=== PATIENT | female | born 1935 | race Caucasian/White ===

== ENCOUNTER 2018-09-20 09:33 | Emergency (ER) | payer OTHER ==
[~2018-09-20] VITALS: Ht 154.9 cm; Wt 68.0 kg
[2018-09-20] MEDS ORDERED: ALEVE220 MG PO (10:18)
[2018-09-20] MEDS ORDERED: DULCOLAX10 MG RECTAL (10:27)
[2018-09-20] MEDS ORDERED: CARBIDOPA-LEVO1 EAC2 PO (10:30)
[2018-09-20] MEDS ORDERED: IRON325 PO (10:31)
[2018-09-20] MEDS ORDERED: VITAMIN B-12500 MCG PO (10:31)
[2018-09-20] MEDS ORDERED: COLACE100 MG PO (10:31)
[2018-09-20] MEDS ORDERED: GLYCOLAX119 GM PO (10:32)
[2018-09-20] MEDS ORDERED: MELATONIN5 M1 PO (10:32)
[2018-09-20 10:34] LABS: ABSOLUTE NEUTROPHILS 3.6 thou/uL (1.4-8.2); BASOPHILS 0.4 % (0.0-2.0); EOSINOPHILS 1.1 % (0.0-3.0); HEMATOCRIT 38.4 % (37.0-47.0); HEMOGLOBIN 12.9 gm/dL (12.0-15.0); LYMPHOCYTES 19.7 % (24.0-44.0); MCH 28.2 pg (26.0-34.0); MCHC 33.4 g/dL (28.0-37.0); MCV 84.3 fL (80.0-100.0); MONOCYTES 4.2 % (1.0-8.0); PLATELET COUNT 223 thou/uL (150-400); POLYS 74.6 % (36.0-66.0); RBC 4.56 mil/uL (4.20-5.00); RDW 15.3 % (10.5-14.5); WBC 4.9 thou/uL (4.0-11.0)
[2018-09-20 10:42] LABS: CALCIUM 8.9 mg/dL (8.5-10.1); CREATININE 0.7 mg/dL (0.6-1.0)
[2018-09-20 10:48] LABS: ALBUMIN 3.8 g/dL (3.4-5.0); TOTAL BILIRUBIN 0.3 mg/dL (<0.1-1.0); TOTAL PROTEIN 7.3 g/dL (6.4-8.2)
[2018-09-20 19:30] VITALS: BP 104/55
--- NOTE | 2018-09-21 08:06 | EKG ---
[place] [address] [facility] [employer] [place] [address] ELECTROCARDIOGRAM REPORT Name: MAGNO SALCEDOGAURAV [facility] [id number] ������������������ Admission: 09/20/18 ������������������ Attend Phys: Discharge: 09/20/18 ������������������ Date of : 37 Report #: [id number] ����������������������������������������������������������������� [id number] THIS REPORT FOR: //name// [facility] ED Test Date: 2018-09-20 Test Time: 10:06:02 Pat Name: JIM SALCEDO Department: Room: Gender: F Integration Analyst: xochilt : 1935 Requested By: Aniceto Aguila Order Number: [id number] MD: Alexandre Rush Measurements Intervals [place] Rate: 84 P: 69 VT: 208 QRS: 3 QRSD: 95 T: -4 QT: 357 QTc: 422 Interpretive Statements Sinus rhythm with sinus arrhythmia Borderline T abnormalities, inferior leads No previous ECG available for comparison Electronically Signed On 09-21-2018 8:06:37 CDT by Alexandre Rush [email or web address] ��������������������������������������������� <ELECTRONICALLY SIGNED> ���������������������������������������� By: Alexandre Rush MD, [facility] ��������������������������������������������� 09/21/18 0806 1006 1006 Alexandre Rush MD, FACC /EPI
== END 2018-09-20 19:34 ==
LOC: ER 09:33
PROVIDERS: Emergency Medicine
DX: M24.411 Recurrent dislocation, right shoulder (principal); W18.39XA Other fall on same level, initial encounter; Y93.89 Activity, other specified; Y92.128 Other place in nursing home as the place of occurrence of the external cause; Y99.8 Other external cause status

== ENCOUNTER 2019-04-02 11:24 | Inpatient (IN) | payer OTHER ==
[~2019-04-02] VITALS: Ht 145 cm; Wt 72.6 kg
[2019-04-02 11:24] VITALS: BP 144/66
[~2019-04-02 11:24] MED LIST: ALEVE220 MG PO; CARBIDOPA-LEVO1 EAC2 PO; COLACE100 MG PO; DULCOLAX10 MG RECTAL; GLYCOLAX119 GM PO; IRON325 PO; MELATONIN5 M1 PO; VITAMIN B-12500 MCG PO
[2019-04-02] MEDS ORDERED: NAMENDA 10 MG T10 MG PO (11:37)
[2019-04-02] MEDS ORDERED: VANACOF DM LIQ240 ML PO (11:37)
[2019-04-02] MEDS ORDERED: OMEPRAZOLE 20 M20 M1 PO (11:38)
[2019-04-02] MEDS ORDERED: OXYBUTYNIN 5 MG5 M2 PO (11:38)
[2019-04-02] MEDS ORDERED: FISH OIL 1,0001 EAC9 PO (11:38)
[2019-04-02] MEDS ORDERED: SENNA8.8 MG/5 M PO (11:39)
[2019-04-02] MEDS ORDERED: TYLENOL WITH CO1 TA1 PO (11:39)
[2019-04-02] MEDS ORDERED: REQUIP XL2 MG PO (11:39)
[2019-04-02 12:55] VITALS: BP 189/97
[2019-04-02 14:13] LABS: ABSOLUTE NEUTROPHILS 3.7 thou/uL (1.4-8.2); BASOPHILS 0.5 % (0.0-2.0); EOSINOPHILS 0.5 % (0.0-3.0); HEMATOCRIT 36.7 % (37.0-47.0); HEMOGLOBIN 12.3 gm/dL (12.0-15.0); MCHC 33.5 g/dL (28.0-37.0); MCV 89.4 fL (80.0-100.0); MONOCYTES 3.6 % (1.0-8.0); PLATELET COUNT 251 thou/uL (150-400); POLYS 73.4 % (36.0-66.0); RDW 14.1 % (10.5-14.5)
[2019-04-02 14:36] LABS: CALCIUM 9.1 mg/dL (8.5-10.1); CREATININE 0.8 mg/dL (0.6-1.0); POTASSIUM 4.2 mmol/L (3.5-5.1)
[2019-04-02 16:22] VITALS: BP 144/66
[2019-04-02 17:33] VITALS: BP 151/59
[2019-04-03 03:45] VITALS: BP 110/47
--- NOTE | 2019-04-03 05:00 | NUR ---
PT TO UNIT AROUND 1715, I ASSUMED CARE AT 1900. ADMISSION ASSESSMENT COMPLETED, VSS, NO SKIN ISSUES. ORINETED TO NURSE, UNIT AND CALL LIGHT. PT ALERT AND ORIENTED TO PERSON BUT CONFUSED/FORGETFUL. SISTER AND SON HELPED WITH ADMISSION. NPO AT MIDNIGHT FOR SX TODAY. REPORTING SEVERE PAIN AT BEGINNING, IV PUSH MORPHINE GIVEN AND PT HAS BEEN ASLEEP ALL NIGHT. INCONTINENT OF B&B. ON 2 LITERS DUE TO SATS DROPPING FROM IV PAIN MEDS, DOES NOT WEAR OXYGEN AT HOME. WILL CONTINUE TO MONITOR.
[2019-04-03 09:57] LABS: HEMATOCRIT 34.4 % (37.0-47.0); HEMOGLOBIN 11.2 gm/dL (12.0-15.0); MCH 29.4 pg (26.0-34.0); MCHC 32.6 g/dL (28.0-37.0); MCV 90.1 fL (80.0-100.0); RBC 3.81 mil/uL (4.20-5.00); RDW 14.2 % (10.5-14.5); WBC 4.3 thou/uL (4.0-11.0)
[2019-04-03 11:45] VITALS: BP 134/65
[2019-04-03 15:00] VITALS: BP 92/53
--- NOTE | 2019-04-03 15:50 | NUR ---
PT ADMITTED RELATED TO FX L HIP. CM REVIEWED CHART AND SPOKE WITH CARE TEAM. CM MET WITH PT, SISTER, DTR, AND GDTR AT BEDSIDE THIS DAY. PT HAD SURGERY THIS MORNING. SISTER INDICATED THAT PT RESIDES AT [facility] ON THE 2ND FLOOR (NURSING FLOOR). SHE INDICATED WITH PT HAD USED A FWW WITH ASSIST FOR SHORT DISTANCES AND A WHEELCHAIR FOR LONGER DISTANCES. SISTER INDICATED THAT DR. REIS HAD SPOKEN TO THEM ABOUT PT POSSIBLY NEEDING POST ACUTE CARE STAY BEFORE RETURNING TO [facility]. CARE TEAM INDICATED THAT PT IS BEING TRANSFERED TO FOR TELE ROM 355. CM TO FOLLOW INDICATED WITH DC PLANNING.
--- NOTE | 2019-04-03 16:07 | HC ---
[facility] [place] [address] CONSULTATION Name: JIM SALCEDO Room #: 355- ADM IN M.R.#: [id number] Admission: 04/02/19 Attend Phys: Susan Hilliard MD Discharge: Date of : 36 Report #: [id number] THIS REPORT FOR: cc: Susan Hilliard MD,Brando Paiz MD, MD ~ THIS REPORT FOR: //name// CC: Susan Hillirad DATE OF SERVICE: 04/03/2019 REASON FOR CONSULTATION: Left hip fracture. HISTORY OF PRESENT ILLNESS: The patient is an 83-year-old female who evidently fell at her nursing facility on to her left side in the bathroom. She was brought to the Emergency Room, found to have a subcapital femoral neck fracture on the left. She has been admitted for definitive treatment. PAST MEDICAL HISTORY: Significant for Parkinson's, restless legs syndrome, constipation, mixed hyperlipidemia, repeated falls, stress incontinence, rotator cuff repair, bladder mesh and implants. CURRENT MEDICATIONS: Have been reviewed and are on the chart. ALLERGIES: No known drug allergies. SOCIAL HISTORY: She does not smoke, drink or use illicit drugs. She lives at [facility]. She does use a walker for ambulation. PHYSICAL EXAMINATION: GENERAL: This is a very frail-appearing female in what appears to be a moderate amount of pain. She is a very poor historian and not cooperative with examination. EXTREMITIES: Examination of left lower extremity shows to have pain with range of motion of the left hip. She does wiggle her toes. She has brisk capillary refill. X-RAY EXAMINATION: AP and lateral of the left hip show a subcapital femoral neck fracture of unknown chronicity. CT scan confirms a subcapital femoral neck fracture on the left. ASSESSMENT: Left femoral neck fracture, displaced. PLAN: We are recommending a hemiarthroplasty for definitive treatment for her to have her scheduled this morning for my partner, Dr. Peña to perform the [facility] [address] [place] [address] CONSULTATION Name: MAGNO SALCEDOGAURAV Room #: 355- ADM IN M.R.#: [id number] Admission: 04/02/19 Attend Phys: Susan Hilliard MD Discharge: Date of : 36 Report #: [id number] surgery, nursing staff will attempt to get in touch with his family in order to apprise them on her situation. Thanks for allowing us to participate in the care of the patient. <ELECTRONICALLY SIGNED> By: Brando Spear MD 04/03/19 1607 0652 0712 Brando Spear MD /nt
--- NOTE | 2019-04-03 18:56 | NUR ---
ASSUMED CARE OF THE PT AT 0700. PT WENT TO SX AND RETURNED WITH TACHYCARDIA, HR GOES FROM 88 TO 122, WITH PAIN MEDS, SEE EMAR AND IV FLUIDS. DOCTOR NOTIFIED AND ADVISED TO PUT ORDERS IN TO SEND PT TO TELE FOR MONITORING AND EKG. EKG SHOWED ABNORMAL TACHYCARDIA. SCDS, JAKE, ICE PACKS, SONU HOSE IN PLACE. LUNGS ARE NORMAL POST OP WITH IRREGULAR BREATHING. BED IN LOWEST POSITION, CALL LIGHT WITHIN REACH AND FALL PRECAUTIONS IN PLACE. WILL CONTINUE TO MONITOR THE PT.
[2019-04-03 20:13] VITALS: BP 98/53
[2019-04-03 23:48] VITALS: BP 120/61
[2019-04-04 04:23] VITALS: BP 139/56
[2019-04-04 05:52] LABS: HEMATOCRIT 24.1 % (37.0-47.0); MCH 30.6 pg (26.0-34.0); MCV 90.1 fL (80.0-100.0); RBC 2.67 mil/uL (4.20-5.00); WBC 5.2 thou/uL (4.0-11.0)
[2019-04-04 06:01] LABS: HEMOGLOBIN 8.2 gm/dL (12.0-15.0)
--- NOTE | 2019-04-04 06:52 | NUR ---
PT MAKING SLOW PROGRESS TOWARDS GOALS. X1 PAIN MEDICATIONS LAST NIGHT FOR COMPLAINT OF LEFT HIP PAIN. BANDAGE D/I. HEMOVAC WITH SANGUINOUS DRAINAGE. AT APPROXIMATELY 2300 PT WAS BRIEFLY BRADYCARDIC. UPON ENTERING THE ROOM PT WAS AWAKE/ALERT AND WAS NOTED TO HAVE VOMITED. ZOFRAN WAS GIVEN. THE BRADYCARDIA WAS BRIEF AND SPONTANEOUSLY RESOLVED. ZOFRAN RELIEVED THE NAUSEA. CONTINUE TO MONITOR.
[2019-04-04 07:19] VITALS: BP 100/45
[2019-04-04 09:16] LABS: URINE BILIRUBIN NEGATIVE (Negative); URINE BLOOD NEGATIVE (Negative); URINE COLOR YELLOW; URINE GLUCOSE-RANDOM* NEGATIVE (Negative); URINE KETONES TRACE (Negative); URINE LEUKOCYTES-REFLEX 1+ (Negative); URINE NITRITE-REFLEX POSITIVE (Negative); URINE PROTEIN (DIPSTICK) NEGATIVE (Negative); URINE SPECIFIC GRAVITY 1.025 (1.005-1.035); URINE UROBILINOGEN 0.2 E.U./dl (0.2-1.0)
[2019-04-04 09:17] LABS: URINE CLARITY HAZY
[2019-04-04 09:39] LABS: SQUAMOUS 4-10 Moderate /LPF (0-3)
[2019-04-04 09:40] LABS: AMORPHOUS URATES Moderate /LPF (None Seen); CASTS None Seen /LPF (None Seen); URINE RBC None Seen /HPF (0-2); URINE WBC-REFLEX 6-15 Few /HPF (0-5)
--- NOTE | 2019-04-04 10:48 | NUR ---
Pt had "y" for pressure wound indicated however does not have pressure ulcer. S/P hip surgery 2/3. Tolerating regular diet. Hx senile dementia but is talkative with some confusion. Son in room, voiced no nutrition concerns and stated her wt has been stable. Low nutrition risk
[2019-04-04 11:03] VITALS: BP 95/46
--- NOTE | 2019-04-04 13:54 | H ---
[facility] [place] [address] HISTORY AND PHYSICAL Name: JIM SALCEDO Room #: 355-P ADM IN M.R.#: [id number] Admission: 04/02/19 Attend Phys: Susan Hilliard MD Discharge: Date of : 36 Report #: [id number] THIS REPORT FOR: //name// CC: Susan Hilliard DATE OF SERVICE: 04/02/2019 CHIEF COMPLAINT: Fall with leg pain. HISTORY OF PRESENT ILLNESS: The patient is an 83-year-old female from [facility] the [facility] with a history of dementia who fell on 04/02/2019, complained of pain on her left side. She apparently was in her bathroom after getting up without calling for assistance when she normally needs contact guard assistance with an aid and a roller walker to get in and around her room. She was found on the floor and could not walk and brought to the Emergency Room, which revealed a left hip fracture. PAST MEDICAL HISTORY: Senile dementia, Parkinson's disease, restless leg syndrome, dyslipidemia. PAST SURGICAL HISTORY: She has had a right rotator cuff repair, bladder mesh surgery. FAMILY HISTORY: Noncontributory. SOCIAL HISTORY: She has been living on the assisted living unit at [facility] for some time. No chronic alcohol or tobacco use. ALLERGIES: None. MEDICATIONS: Naproxen, Sinemet, Colace, iron, MiraLax, melatonin, memantine, Fish oil, oxybutynin, Requip, Senokot. REVIEW OF SYSTEMS: She denies any shortness of breath or chest pain. Complains of some pain in the left hip. PHYSICAL EXAMINATION: VITAL SIGNS: Temperature 36.7, pulse 84, respirations 18, blood pressure 134/65, O2 sat 96% on 2 liters nasal cannula. GENERAL: She is asleep, drowsy after surgery, but arousable, talks to her family. HEAD AND NECK: Unremarkable. LUNGS: Clear. HEART: Regular. ABDOMEN: Soft, normoactive bowel sounds. EXTREMITIES: No edema. Surgical dressing of the left hip with postoperative [facility] [address] [place] [address] HISTORY AND PHYSICAL Name: JIM SALCEDO Room #: 355-P [facility] IN ..#: [id number] Admission: 04/02/19 Attend Phys: Susan Hilliard MD Discharge: Date of : 36 Report #: [id number] NEUROLOGIC: No resting tremor noted. She moves all extremities, but globally weak, splints on the left leg due to pain. EKG revealed sinus tachycardia 105. Postoperative x-ray reviewed. Lab data reviewed. I spoke to the family at the bedside and reviewed her home medications. ASSESSMENT: 1. Acute closed left femoral neck fracture. 2. Status post left hemiarthroplasty. 3. Parkinson disease. 4. Sinus tachycardia. 5. Mild senile dementia. PLAN: Admit to move her to telemetry to monitor for any tachyarrhythmias postoperatively, but right now just appears sinus tachycardia, which could be related to pain from surgery. I will try to minimize her sedating medications and pain regimen as well. <ELECTRONICALLY SIGNED> By: Lennox Kay MD 04/04/19 1354 1351 1634 Lennox Kay MD /nt
--- NOTE | 2019-04-04 14:53 | NUR ---
PATIENT DISCHARGED FROM OT, PATIENT UNABLE TO RECALL THR PRECAUTIONS, SHE REQUIRED DEPENDENT ASSIST FOR LE DRESSING AND BATHING PRIOR TO FALL AND WILL NEED SUPERVISION AND ASSIST FOR LE DRESSING AND BATHING FROM STAFF TO PRESERVE THE INTEGRITY OF THE NEW JOINT AFTER DISCHARGE. DISCHARGE FROM OT AT THIS TIME.
[2019-04-04 15:12] VITALS: BP 111/43
--- NOTE | 2019-04-04 16:32 | NUR ---
SW reviewed chart and spoke with nursing. Pt was transferred to from yesterday. Pt is s/p left INDIRA. SW met with pt and son at bedside. Discussed discharge planning and provided list of SNFs for review, should pt need a short term SNF stay prior to returning to [facility]. LAUREN is following to assist as needed with discharge planning.
--- NOTE | 2019-04-04 18:00 | NUR ---
PT VSS...PAIN WELL CONTROLLED WITH PRN NORCO...DENIES NAUSEA THIS SHIFT...ENCOURAGE ACTIVITY...
[2019-04-04 19:09] VITALS: BP 124/48
[2019-04-05 03:21] VITALS: BP 106/48
[2019-04-05 04:32] LABS: HEMATOCRIT 20.9 % (37.0-47.0); HEMOGLOBIN 7.1 gm/dL (12.0-15.0); MCH 30.5 pg (26.0-34.0); MCHC 33.9 g/dL (28.0-37.0); RBC 2.33 mil/uL (4.20-5.00); RDW 13.9 % (10.5-14.5); WBC 4.7 thou/uL (4.0-11.0)
[2019-04-05 07:21] VITALS: BP 95/42
--- NOTE | 2019-04-05 08:21 | O ---
[facility] [place] [address] OPERATIVE REPORT Name: JIM SALCEDO Room #: 355-P ADM IN M.R.#: [id number] Admission: 04/02/19 Attend Phys: Susan Hilliard MD Discharge: Date of : 36 Report #: [id number] THIS REPORT FOR: cc: Susan Hilliard MD,Lennox Ritchie MD, MD ~ THIS REPORT FOR: //name// CC: Susan Hilliard DATE OF SERVICE: 04/03/2019 PREOPERATIVE DIAGNOSIS: Fracture, left femoral neck. POSTOPERATIVE DIAGNOSIS: Fracture, left femoral neck. PROCEDURE: Left proximal femoral hemiarthroplasty. SURGEON: Lennox Peña MD. INDICATIONS: This frail 83-year-old female has Parkinson disease and mild dementia. She has limited ambulatory potential and used a walker for protected ambulation with significant assistance. She fell injuring the left hip. X-rays confirmed an impacted femoral neck fracture. Given her findings and history, we elected to go ahead with proximal femoral hemiarthroplasty. DESCRIPTION OF PROCEDURE: The patient was taken to the operating room where she was placed under general anesthesia. Prophylactic intravenous antibiotics were administered. She was turned to the right lateral decubitus position. The left hip, thigh and leg were meticulously prepped and draped. A slightly curving posterolateral skin incision was made centered over the greater trochanter. This was carried through subcutaneous tissues and fascia, exposing the posterior aspect of the hip joint. The short external rotators and capsule were taken down and tagged with several #1 FiberWire sutures and preserved. The hip was dislocated. The femoral head was found to be 44 mm in diameter. The calcar was trimmed down to an appropriate level. The canal was opened with reamers and hand broaches. The Moore and Nephew hip system was utilized. A size 12 Synergy cement and stem seemed to fit most appropriately. A trial reduction was performed and a 0 neck length with a 44 mm unipolar head fit nicely. This resulted in satisfactory range of motion and stability. I believe she does have a mild flexion contracture from her preoperative status and I have attempted to shorten the hip slightly to allow for better hip extension. With this, the hip still seems stable with flexion and rotation. The trial components were removed. Methylmethacrylate cement was mixed and injected into the canal using a cement restrictor. The Moore and Nephew size 12 Synergy cemented femoral component was then inserted. This was positioned about 15 degrees of [facility] [address] [place] [address] OPERATIVE REPORT Name: JIM SALCEDO Room #: 355-P [facility]#: [id number] Admission: 04/02/19 Attend Phys: Susan Hilliard MD Discharge: Date of : 36 Report #: [id number] anteversion. Excess cement was removed around its margin. A unipolar 44 mm head with a +0 neck length sleeve was then brought on to the field and impacted on the Cho taper. It seated nicely. The hip was then reduced. Alignment, range of motion, stability and leg length were assessed and felt to be satisfactory. The hip was protected as the cement continued to harden and appeared to be firm and stable. The wound was copiously irrigated. Good hemostasis was established. The short external rotators were then repaired using the #1 FiberWire sutures passed through drill holes in greater trochanter. A single Hemovac was left the wound exiting through a separate stab incision. The fascia was closed with multiple #1 Vicryl sutures. The adipose tissues were closed with 0 Monocryl. The subcutaneous tissues were also closed with 0 Monocryl. The skin was closed with skin hima. A sterile dressing was applied. The patient was awakened and returned to recovery room in satisfactory condition. <ELECTRONICALLY SIGNED> By: Lennox Peña MD 04/05/19 0821 0938 1013 Lennox Peña MD /nt
[2019-04-05 15:09] VITALS: BP 98/37
--- NOTE | 2019-04-05 16:46 | NUR ---
PATIENT WILL DISCHARGED TO 4S. SHE IS CURRENTLY SLEEPING AT THIS TIME. RESPIRATIONS ARE NON LABOR. DID HAVE PAIN MED EARLIER AND IT WAS EFFECTIVE. SHE DENIES PAIN AT THIS TIME. WILL CONT WITH PLAN OF CARE.
--- NOTE | 2019-04-05 17:33 | NUR ---
SW reviewed chart and spoke with nursing. Consult for 5N entered today. Awaiting input from 5N. Pt was transferred to earlier today. Pt is from [facility]. SW is following to assist as needed with discharge planning.
--- NOTE | 2019-04-05 18:38 | NUR ---
PT ARRIVED AT APPROX 1625.V.S 98.6 18 78 117/40 O2 SAT 94% 2 2L/NC GIVEN PRN PAIN MED FAMILY AT BEDSIDE.
[2019-04-05 20:15] VITALS: BP 123/45
[2019-04-06 03:00] VITALS: BP 107/38
--- NOTE | 2019-04-06 03:58 | NUR ---
Assumed pt care @1915. pt alert to self. incont of urine. q2turn. abduction pillow in place. cuba and hemovac in place and patent. no output in hemovac. pt on 2lO2 NC. no s/s of distress. will cont to monitor
[2019-04-06 06:07] LABS: MCHC 34.7 g/dL (28.0-37.0); WBC 3.1 thou/uL (4.0-11.0)
[2019-04-06 06:10] LABS: MCH 30.9 pg (26.0-34.0); RBC 1.87 mil/uL (4.20-5.00); RDW 13.5 % (10.5-14.5)
[2019-04-06 06:27] LABS: CALCIUM 8.3 mg/dL (8.5-10.1); CREATININE 0.4 mg/dL (0.6-1.0); POTASSIUM 3.9 mmol/L (3.5-5.1)
[2019-04-06 06:44] LABS: HEMATOCRIT 16.7 % (37.0-47.0)
[2019-04-06 06:46] LABS: HEMOGLOBIN 5.8 gm/dL (12.0-15.0)
[2019-04-06 08:14] VITALS: BP 121/47
--- NOTE | 2019-04-06 09:47 | NUR ---
PATIENT SEEN BY DR. OCONNELL FOR REHAB CONSULT ON 04/05/19. PATIENT DOES NOT MEET CRITERIA FOR 5N/REHAB ADMISSION, TOO LOW FUNCTIONING. INTERIOR WALL ASSEMBLER INFORMED. THANK YOU FOR THIS REFERRAL.
--- NOTE | 2019-04-06 10:49 | NUR ---
PATIENT RESTING IN BED PT ALERT XS2-3 IS PALE WILL GET 1 UNIT PRBC REPEAT H&H THEN MAY RECIEVE 2 ND UNIT IF INDICATED. DR SCHWARTZ ABD DR ZHAO'S UNDERCAR SPECIALIST HERE TO SEE PATIENT. DR REIS ALSO PUT ORDERS IN COMPUTER. PT W/O S/S PAIN.
[2019-04-06 15:00] VITALS: BP 106/41; BP 116/46; BP 126/53; BP 130/54
[2019-04-06 16:51] VITALS: BP 106/41
[2019-04-06 18:12] VITALS: BP 126/53
[2019-04-06 18:44] LABS: HEMATOCRIT 24.9 % (37.0-47.0); HEMOGLOBIN 8.3 gm/dL (12.0-15.0)
[2019-04-06 19:45] VITALS: BP 109/38
--- NOTE | 2019-04-07 05:12 | NUR ---
PT'S HGB WA 8.3 POST TRANSFUSION.SECOND UNIT OF BLOOD GIVEN SINCE HGB WAS > 7.PT INCONT OF B&B,PERICARE DONE WITH EACH INCONT.JAKE DRSG STILL INTACT ON HER L HIP.SCD AND SONU HOSE IN PLACE ON HER BLE.PT DENIED PAIN ALL SHIFT.RESTING ON HER BED AT THIS TIME.FALL PRECAUTIONS IN PLACE,CALL LIGHT WITHIN REACH.
--- NOTE | 2019-04-07 06:01 | NUR ---
PT WAS SLEEPY THIS SHIFT BUT EASILY AROUSABLE.PT'S HGB WAS 8.3 POST I UNIT BLOOD TRANSFUSION.SECOND UNIT OF BLOOD NOT GIVEN BC HGB WAS >7.PT INCONT OF B&B,EXTERNAL CATH IN PLACE.JAKE DRSG STILL INTACT ON HER L HIP.SCD AND SONU HOSE IN PLACE ON HER BLE.PT DENIED PAIN THIS SHIFT.FALL PRECAUTIONS IN PLACE,CALL LIGHT WITHIN REACH.
[2019-04-07 06:19] LABS: HEMOGLOBIN 6.7 gm/dL (12.0-15.0); WBC 3.3 thou/uL (4.0-11.0)
[2019-04-07 06:22] LABS: MCHC 33.9 g/dL (28.0-37.0); MCV 88.5 fL (80.0-100.0); RBC 2.24 mil/uL (4.20-5.00); RDW 13.2 % (10.5-14.5)
[2019-04-07 06:32] LABS: HEMATOCRIT 19.8 % (37.0-47.0)
[2019-04-07 06:51] LABS: CALCIUM 8.2 mg/dL (8.5-10.1); CREATININE 0.5 mg/dL (0.6-1.0); POTASSIUM 4.2 mmol/L (3.5-5.1)
[2019-04-07 07:03] VITALS: BP 111/41
--- NOTE | 2019-04-07 12:46 | NUR ---
Assumed care of pt at 0700. Pt a&ox4. Denies pain. Dressing c/d/i. External cath in place. Q2h turn. Hg 6.7. Will transfuse 1 unit of blood. Type and screen ordered this am. Meds crushed in pudding. Family at bedside. Call light within reach. Will continue to monitor.
[2019-04-07 15:32] VITALS: BP 120/44
[2019-04-07 17:19] VITALS: BP 126/60
[2019-04-07 19:30] VITALS: BP 128/46
[2019-04-07 20:30] VITALS: BP 126/60
[2019-04-07 21:37] LABS: HEMATOCRIT 29.4 % (37.0-47.0)
--- NOTE | 2019-04-08 03:22 | NUR ---
PT'S WAS GETTING BLOOD AT START OF SHIFT,NO TRANSFUSION REACTION NOTED.VS STABLE POST TRANSFUSION.PT REPOSITIONED WHILE IN BED.INCONT,PERICARE DONE WITH EACH INCONT.PT WITH POOR APPETITE,SNACK OFFERED AT BEDTIME,PT ATE 70%.PO FLUIDS ENCOURAGED.DRSG ON HER L HIP C/D/I.PT RESTING ON HER BED AT THIS TIME.FALL PRECAUTIONS IN PLACE,CALL LIGHT WITHIN REACH.
[2019-04-08 04:15] VITALS: BP 146/74
[2019-04-08 06:25] LABS: HEMATOCRIT 28.2 % (37.0-47.0); HEMOGLOBIN 9.6 gm/dL (12.0-15.0); MCH 30.2 pg (26.0-34.0); MCHC 34.2 g/dL (28.0-37.0); MCV 88.2 fL (80.0-100.0); RBC 3.19 mil/uL (4.20-5.00); RDW 13.5 % (10.5-14.5); WBC 3.7 thou/uL (4.0-11.0)
[2019-04-08 06:39] LABS: CALCIUM 8.2 mg/dL (8.5-10.1); CREATININE 0.6 mg/dL (0.6-1.0)
[2019-04-08 07:31] VITALS: BP 130/55
[2019-04-08 16:19] VITALS: BP 148/56
--- NOTE | 2019-04-08 18:30 | NUR ---
PT ASSESSED AT START OF SHIFT. HGB STABILIZED. DR. REIS IN EARLY TO SEE PT. TURNED Q2HRS. REMAINS WEAK. ASSISTED TO FEED ATE SOME BKFT AND FED HERSELF LUNCH. LARGE DARK BROWN STOOL SENT TO LAB. FAMILY HERE TO VISIT THIS AFTERNOON AND UPDATED ON PT CONDITION.
[2019-04-08 21:45] VITALS: BP 143/60
--- NOTE | 2019-04-09 02:30 | NUR ---
PT'S FAMILY WERE STILL IN THE ROOM VISITING AT START OF SHIFT.PT DRANK HALF OF HER ENSURE SITTING AT HER TABLE.PT HAD A MEDIUM DARK STOOL AT HS.PT DENIED PAIN SO FAR.PT STILL WEAK.REPOSITIONED Q2.EXT FEMALE CATH IN PLACE WITH DARK YELLOW URINE.PT SLEEPING ON HER BED AT THIS TIME.FALL PRECAUTIONS IN PLACE,CALL LIGHT WITHIN REACH.
[2019-04-09 06:02] LABS: HEMATOCRIT 28.6 % (37.0-47.0); HEMOGLOBIN 9.5 gm/dL (12.0-15.0)
[2019-04-09 09:25] VITALS: BP 119/54
--- NOTE | 2019-04-09 17:49 | NUR ---
PT ASSESSED AT START OF SHIFT. MORE ALERT AND TALKATIVE TODAY. STILL TURNING PT IN BED AND WILL RESUME THERAPY TOMORROW NOW THAT HGB IS STABLIZED. EATING BETTER. TAKING MEDS WELL. URINE OUTPUT CASHIER RECEPTIONIST YELLOW. DR. REIS ORDERED IV FLUIDS TO START WHEN AVAILABLE FROM PHARMACY. SISTER AT BEDSIDE. POSSIBLE DC TOMORROW TO SKILLED REHAB.
[2019-04-09 18:47] VITALS: BP 116/38
[2019-04-09 19:45] VITALS: BP 138/62
--- NOTE | 2019-04-10 03:41 | NUR ---
VSS-AFEBRILE. RESTED WELL THROUGH NIGHT WITH FEW NEEDS. DENIES PAIN WITH LEFT HIP. TURNED EVERY TWO HOURS FOR COMFORT. FEMALE EXTERNAL CATHETER REMAINS IN PLACE, AND DRAINING ADEQUATE AMOUNTS OF LIGHT YELLOW URINE TO DRAINAGE CANNISTER. FALL PRECAUTIONS IN PLACE. JAKE DRESSING REMAINS INTACT WITH SLIGHT, DRIED DRAINAGE PRESENT. CALLS APPROPRIATELY FOR ANY NEEDED ASSISTANCE.
[2019-04-10 04:54] VITALS: BP 135/53
[2019-04-10 08:14] VITALS: BP 108/51
[2019-04-10 10:45] LABS: HEMATOCRIT 29.6 % (37.0-47.0); HEMOGLOBIN 9.8 gm/dL (12.0-15.0)
[2019-04-10 10:49] LABS: CALCIUM 8.8 mg/dL (8.5-10.1); CREATININE 0.6 mg/dL (0.6-1.0); POTASSIUM 3.3 mmol/L (3.5-5.1)
--- NOTE | 2019-04-10 12:04 | NUR ---
PT CARE ASSUMED AT 0700. A&Ox2-3 WITH PERIODS OF CONFUSION. POST OP DAY 7 OF A L. HIP FIXATION WITH DR. SCHWARTZ. Q2 TURNS. JAKE DRESSING INTACT. TAKES PILLS WHOLE SCD'S AND SONU HOSES IN PLACE. IV PATENT WITH NO REDNESS OR EDEMA. PT IS FROM [facility]. PT NEEDS REHAB AND NEEDS TO BE CONSULTED. PT IS SITTING IN THE RECLINER. FALL PROTOCOL IN PLACE. CALL LIGHT IN REACH.
[2019-04-10] MEDS ORDERED: CIPRO500 MG PO (13:03)
[2019-04-10] MEDS ORDERED: ENOXAPARIN30 MG/0.1 SUBQ (13:03)
[2019-04-10] MEDS ORDERED: ACETAMINOPHEN325 M1 PO (13:04)
[2019-04-10] MEDS ORDERED: TRAMADOL 50 MG50 MG PO (13:04)
--- NOTE | 2019-04-10 16:41 | NUR ---
CARE TEAM INDICATED THAT PT'S FAMILY EXPRESSED DESIRE FOR PT TO RETURN TO [facility] BUT TO THE 3RD FLOOR AND TO HAVE THERAPY THERE. PHYSICAIN WROTE ORDERS. CM CALLED AND SPOKE WITH FACILITY AND THEY INDICATED THAT THEY COULD TAKE PT BUT THAT THEY WOULDN'T BE ABLE TO TAKE HER TO 3RD FLOOW UNTIL WEDNESDAY. CM NOTIFIED PHYSICAIN. CM TO ASSIST IN FACILITATING DC NEEDS.
[2019-04-10 16:59] VITALS: BP 161/49
[2019-04-10 19:59] VITALS: BP 149/57
--- NOTE | 2019-04-10 23:26 | NUR ---
PT RESTING IN BED WATCHING TV. IVF INTACT. ABD PILLOW IN PLACE, SCDS AND TEDS ON. PT PROVIDING FLUIDS TO HERSELF, DECLINED WANTING A SNACK. BLUNTED AFFECT, GOOD EYE CONTACT, SOFT SPOKEN. COMPLIANT WITH MEDS. FEMALE EXT CATHTER IN PLACE. L HIP DRESSING INTACT. POSITIVE CIRCULATION. DENIES PAIN. BED ALARM ON.
[2019-04-11 08:00] VITALS: BP 112/49
--- NOTE | 2019-04-11 12:12 | NUR ---
PT CARE ASSUMED AT 0700. A&O2-3 WITH PERIODIC CONFUSION. PT RESTING IN BED AND NEEDS TO BE MOTIVATED TO DRINK. PT TAKES MEDS WHOLE. IV IS PATENT WITH NO REDNESS OR EDEMA. IV FLUIDS INFUSING. Q2 TURNS. PT IS DISCHARGING TODAY. AWAITING CALL BACK WITH TIME. JAKE DRESSING INTACT. POST OOP DAY 8. PT UTILIZES AN EXTERNAL CATHETER DUE TO HEAVY STRESS INCONTINENCE. PT EXPRESSES NO PAIN. FALL PROTOCOLL IN PLACE. CALL LIGHT IN REACH.
--- NOTE | 2019-04-11 14:44 | NUR ---
PT DISCHARGING TODAY BACK TO [facility] SHE RECEIVED DC ORDERS AND THAT TRANSPORT ARRANGED FOR 1500 TODAY. TRANSPORT ARRANGED WITH [facility]. NOTIFIED PT'S DTR (DARLENE) OF DC AND TIME OF TRANSPORT. UNIT NOTIFIED AND CHART COPY PER US. RN TO CALL REPORT TO [phone].
--- NOTE | 2019-04-11 15:31 | NUR ---
CARE TEAM INDICATED THAT PT IS MEDICALLY STABLE TO DC TO [facility] 3RD FLOOR THIS DAY. FACILITY IS TO ARRANGE THERAPY UPON PT'S RETURN. [facility] ARR[facility] FOR 1500. PT AND FAMILY AWARE AND AGREEABLE. CHART COPY MADE. ORDERS FAXED. NURSE PRIVIDED NUMBER FOR REPORT. NO OTHER CM INTERVENTION INDICATED. CASE CLOSED.
--- NOTE | 2019-04-12 12:31 | EKG ---
[facility] [place] [address] ELECTROCARDIOGRAM REPORT Name: JIM SALCEDO Room #: 445-P [facility] IN M.R.#: [id number] Admission: 04/02/19 Attend Phys: Susan Hilliard MD Discharge: 04/11/19 Date of : 36 Report #: [id number] THIS REPORT FOR: cc: Susan Hilliard MD, Stany A. MD Lundgren,Alexandre Mares MD [facility] ~ THIS REPORT FOR: //name// [facility] ED Test Date: 2019-04-02 Test Time: 13:06:06 Pat Name: JIM SALCEDO Department: Room: [facility] Gender: F Spike Maker: MAGALY : 1935 Requested By: Katlyn Phillips Order Number: [id number] MD: Alexandre Rush Measurements Intervals [place] Rate: 71 P: 59 [place]: 221 QRS: 13 QRSD: 93 T: 16 QT: 391 QTc: 425 Interpretive Statements Sinus arrhythmia Prolonged [place] interval Compared to ECG 09/20/2018 10:06:02 No significant change was found Electronically Signed On 04-03-2019 17:17:11 COMPANY LABORER by Alexandre Rush [email or web address] <ELECTRONICALLY SIGNED> By: Alexandre Rush MD, [facility] 04/03/19 1717 1306 1306 Alexandre Rush MD, [facility] /EPI
--- NOTE | 2019-04-12 12:42 | EKG ---
[facility] [place] [address] ELECTROCARDIOGRAM REPORT Name: JIM SALCEDO Room #: 445-P [facility] IN M.R.#: [id number] Admission: 04/02/19 Attend Phys: Susan Hilliard MD Discharge: 04/11/19 Date of : 36 Report #: [id number] THIS REPORT FOR: cc: Susan Hilliard MD, Stany A. MD Lundgren,Alexandre Mares MD [facility] ~ THIS REPORT FOR: //name// [facility] Test Date: 2019-04-03 Test Time: 12:21:03 Pat Name: JIM SALCEDO Department: Room: [facility] Gender: F Women'S Swim Coach: Elzbieta BHAKTA : 1935 Requested By: Lennox Kay Order Number: [id number] MD: Alexandre Rush Measurements Intervals [place] Rate: 105 P: 75 [place]: 166 QRS: -7 QRSD: 78 T: 16 QT: 310 QTc: 410 Interpretive Statements Sinus tachycardia Otherwise normal tracing Compared to ECG 09/20/2018 10:06:02 [place] interval is shortened Electronically Signed On 04-03-2019 17:42:39 LICENSED MIDWIFE by Alexandre Rush [email or web address] <ELECTRONICALLY SIGNED> By: Alexandre Rush MD, [facility] 04/03/19 1742 1221 1221 Alexandre Ruhs MD, [facility] /EPI
--- NOTE | 2019-04-12 15:40 | HC ---
[facility] [place] [address] CONSULTATION Name: JIM SALCEDO Room #: 445-P [facility] IN M.R.#: [id number] Admission: 04/02/19 Attend Phys: Susan Hilliard MD Discharge: 04/11/19 Date of : 37 Report #: [id number] THIS REPORT FOR: cc: Susan Hilliard MD, Stany A. MD Smithson, David G. MD ~ THIS REPORT FOR: //name// CC: Susan Hilliard HISTORY OF PRESENT ILLNESS: The patient is an 83-year-old white female who lives at [facility], who fell in the bathroom on 04/02/2019. She was admitted to [facility] and noted to have a left subcapital femoral neck fracture. She underwent left hemiarthroplasty on 04/03/2019. She is allowed weightbearing as tolerated. The patient does have a premorbid history of Parkinson's disease. She is being treated empirically for urinary tract infection. We are seeing her in rehabilitation medicine consultation. PAST MEDICAL HISTORY: Parkinson's disease. 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 PAST SURGICAL HISTORY: Includes right rotator cuff surgery and bladder mesh. MEDICATIONS: Please see the full medication listing. ALLERGIES: No known drug allergies. SOCIAL HISTORY: Lives in assisted living at [facility]. She was noted to be mod assist to walk to the bathroom short distances with a front-wheeled walker. She also was noted to be dependent for lower extremity dressing prior to admission. She does have an involved son. REVIEW OF SYSTEMS: No specific complaints of chest pain, shortness of breath or abdominal discomfort. PHYSICAL EXAMINATION: GENERAL: An 83-year-old rather frail appearing white female in no obvious distress. VITAL SIGNS: Last recorded temperature 98.5, pulse 80, respirations 17, and blood pressure 95/42. NEUROLOGIC: She is alert. She is a limited historian, will follow basic 1 step commands. HEENT: Facies appeared symmetric. EXTREMITIES: She has functional range of motion of both upper extremities. Strength is grade 4- to 3+/5. DTRs are trace to 1. Left lower extremity, her hip dressing with drain is in place. No focal calf swelling. She was able to [address] [address] CONSULTATION Name: JIM SALCEDO Room #: [address] [place] [address] IN M.R.#: [id number] Admission: 04/02/19 Attend Phys: Susan Hilliard MD Discharge: 04/11/19 Date of : 37 Report #: [id number] dorsiflex the left ankle for me. Right lower extremity appeared to have some diffuse weakness, probably at least to grade 3+/5. Functionally, she has been max assist coming sit to stand. ASSESSMENT: An 83-year-old white female with the following problem list: 1. Left subcapital femoral neck fracture, status post hemiarthroplasty to 04/03/2019, weightbearing as tolerated. 2. Parkinson's disease. 3. Premorbid mild senile dementia. 4. Empiric treatment for urinary tract infection. 5. Restless legs syndrome. PLAN: The patient needed considerable assistance prior to the hip fracture. OT notes limited goals. She is at a lower functional level. I do not see that she meets criteria for an acute 5 North inpatient rehabilitation stay. Would agree with prison facility options as are being considered. Thank you for asking us to assist in this patient's care. <ELECTRONICALLY SIGNED> By: Lennox William MD 04/12/19 1540 [id number] [id number] Lennox William MD /nt
--- NOTE | 2019-04-13 12:00 | D ---
[facility] [place] [address] DISCHARGE SUMMARY Name: JIM SALCEDO Room #: 445-P [facility] IN M.R.#: [id number] Admission: 04/02/19 Attend Phys: Susan Hilliard MD Discharge: 04/11/19 Date of : 37 Report #: [id number] THIS REPORT FOR: cc: Susan Hilliard MD, Stany A. MD Peters, David W. MD ~ THIS REPORT FOR: //name// CC: Susan Hilliard FINAL DIAGNOSES: 1. Left proximal femur fracture. 2. Urinary tract infection. 3. Senile dementia. 4. Postoperative anemia. HOSPITAL COURSE: The patient was admitted after a fall and diagnosed with a left hip fracture. She was taken to the operating room with a left hemiarthroplasty by Dr. Peña. Please see his op note. Postoperatively, she had problems with confusion and urinary tract infection and acute blood loss anemia due to surgery. She required a blood transfusion, hemoglobin stabilized. Urine culture was positive and Cipro was started. Gradually, her mental status improved in the last two hospital days, she was awake and pleasantly confused, eating and was participating with therapy. PHYSICAL EXAMINATION: GENERAL: On the day of discharge, she was awake and alert. VITAL SIGNS: Stable vital signs. LUNGS: Clear. HEART: Regular. ABDOMEN: Soft, normoactive bowel sounds. EXTREMITIES: Showed no edema. DISPOSITION: To be discharged back to [facility]. Diet and activity as tolerated, physical and occupational therapy, weightbearing as tolerated. Follow up with Dr. Hilliard and Dr. Peña as indicated. I have signed her transfer orders and medications. <ELECTRONICALLY SIGNED> By: Lennox Kay MD 04/13/19 1200 1320 1346 Lennox Kay MD /nt
== END 2019-04-11 16:04 | DRG 470 ==
LOC: ER 11:24 → 4S 16:23 → 3W 16:23 → 4S 04-05 17:19
PROVIDERS: Emergency Medicine; Internal Medicine Geriatric Medicine; Orthopaedic Surgery; ADMIT Internal Medicine
PROC: 0SRS0J9 Replacement of Left Hip Joint, Femoral Surface with Synthetic Substitute, Cemented, Open Approach (ICD-10-PCS; principal; 2019-04-03)
PROC: 30233N1 Transfusion of Nonautologous Red Blood Cells into Peripheral Vein, Percutaneous Approach (ICD-10-PCS; 2019-04-06)
DX: S72.002A Fracture of unspecified part of neck of left femur, initial encounter for closed fracture (principal); N39.0 Urinary tract infection, site not specified; F02.81 Dementia in other diseases classified elsewhere, unspecified severity, with behavioral disturbance; D62 Acute posthemorrhagic anemia; F03.90 Unspecified dementia, unspecified severity, without behavioral disturbance, psychotic disturbance, mood disturbance, and anxiety; W18.39XA Other fall on same level, initial encounter; G20 Parkinson's disease; G25.81 Restless legs syndrome; E78.5 Hyperlipidemia, unspecified; R29.6 Repeated falls; Z96.0 Presence of urogenital implants; Z79.891 Long term (current) use of opiate analgesic; Y99.8 Other external cause status; Y93.89 Activity, other specified; Z79.899 Other long term (current) drug therapy; Z79.2 Long term (current) use of antibiotics; Y92.012 Bathroom of single-family (private) house as the place of occurrence of the external cause
CPT/HCPCS: 10102; 10779; 50010; 50101; 50382; 50414; 51057; 51130; 51225; 51412; 53000; 53369; 56521; 56525; 56530; 57103; 62110; 62900; 70005

== ENCOUNTER 2019-06-18 18:23 | Emergency (ER) | payer OTHER ==
[~2019-06-18] VITALS: Ht 165.1 cm; Wt 61.2 kg
[~2019-06-18 18:23] MED LIST changes: +ACETAMINOPHEN325 M1 PO; +CIPRO500 MG PO; +ENOXAPARIN30 MG/0.1 SUBQ; +FISH OIL 1,0001 EAC9 PO; +NAMENDA 10 MG T10 MG PO; +OMEPRAZOLE 20 M20 M1 PO; +OXYBUTYNIN 5 MG5 M2 PO; +REQUIP XL2 MG PO; +SENNA8.8 MG/5 M PO; +TRAMADOL 50 MG50 MG PO; +TYLENOL WITH CO1 TA1 PO; +VANACOF DM LIQ240 ML PO
[2019-06-18] MEDS ORDERED: DULCOLAX STOOL100 M1 PO (18:39)
[2019-06-18] MEDS ORDERED: SENNA PLUS TAB1 EACH PO (18:40)
[2019-06-18] MEDS ORDERED: TRAMADOL 50 MG50 MG PO (18:41)
[2019-06-18] MEDS ORDERED: BACLOFEN 10MG T10 MG PO (18:42)
[2019-06-18 19:32] LABS: URINE BILIRUBIN NEGATIVE (Negative); URINE BLOOD NEGATIVE (Negative); URINE CLARITY SL CLOUDY; URINE COLOR YELLOW; URINE GLUCOSE-RANDOM* NEGATIVE (Negative); URINE KETONES TRACE (Negative); URINE LEUKOCYTES-REFLEX NEGATIVE (Negative); URINE PROTEIN (DIPSTICK) NEGATIVE (Negative); URINE SPECIFIC GRAVITY 1.025 (1.005-1.035); URINE UROBILINOGEN 0.2 E.U./dl (0.2-1.0)
[2019-06-18 19:37] LABS: URINE NITRITE-REFLEX POSITIVE (Negative)
[2019-06-18 19:52] LABS: BACTERIA-REFLEX >30 Many /HPF (None Seen); CASTS None Seen /LPF (None Seen); CRYSTALS None Seen /LPF (None Seen); SQUAMOUS 0-3 Few /LPF (0-3)
[2019-06-18 19:53] LABS: URINE RBC 0-2 Rare /HPF (0-2); URINE WBC-REFLEX 0-5 Rare /HPF (0-5)
[2019-06-18] MEDS ORDERED: CEPHALEXIN 250250 M1 PO (20:22)
[2019-06-18] MEDS ORDERED: KEFLEX250 MG/5 M PO (20:27)
[2019-06-18 22:04] VITALS: BP 108/46
--- NOTE | 2019-06-19 08:39 | EKG ---
[facility] [place] [address] ELECTROCARDIOGRAM REPORT Name: JIM SALCEDO Room #: DEP [facility]#: [id number] Admission: 06/18/19 Attend Phys: Discharge: 06/18/19 Date of : 37 Report #: [id number] THIS REPORT FOR: cc: Susan Hilliard MD, Stany A. 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
== END 2019-06-18 22:07 ==
LOC: ER 18:23
PROVIDERS: Emergency Medicine
DX: T42.8X1A Poisoning by antiparkinsonism drugs and other central muscle-tone depressants, accidental (unintentional), initial encounter (principal); N39.0 Urinary tract infection, site not specified; G25.81 Restless legs syndrome; G20 Parkinson's disease; F03.90 Unspecified dementia, unspecified severity, without behavioral disturbance, psychotic disturbance, mood disturbance, and anxiety; Y92.128 Other place in nursing home as the place of occurrence of the external cause